=== PATIENT | female | born 1965 | race Caucasian/White ===

== ENCOUNTER 2017-12-21 15:15 | Outpatient (CLI) | payer BC | END 2017-12-21 15:16 | disposition home or self-care (01) | LOC: BICMAMMO 15:15 | PROVIDERS: ATTEND Family Medicine | DX: Z12.31 Encounter for screening mammogram for malignant neoplasm of breast (principal); Z80.3 Family history of malignant neoplasm of breast | CPT/HCPCS: 77063; 77067 ==

== ENCOUNTER 2018-10-06 13:58 | Outpatient (CLI) | payer BC ==
--- NOTE | 2018-10-06 15:17 | MRI ---
MRI LUMBAR SPINE NONCONTRAST: 10/06/2018 HISTORY: Right lower back pain for approximately seven months. COMPARISON: None available. FINDINGS: A subcentimeter increased T2 weighted signal intensity focus is seen at the anterior aspect, mid port ion, right kidney, which is difficult to characterize but statistically likely represents a small jorge al cyst. The conus medullaris is normal in appearance and terminates at the level of the L1 vertebral body. Endplate degenerative changes are present at the L5-S1 level. A few focal areas of increased T1 and T2 weighted signal intensity are seen within the L3 and L4 vertebral bodies, likely related to small hemangiomas or focal areas of fat. A similar finding is seen in the S1 vertebral body. L1-L2: There is no significant disk bulge or disk herniation. The central spinal canal and neural f oramina are patent. L2-L3: There is no disk bulge or disk herniation. The central spinal canal and neural foramina are patent. L3-L4: There is a mild broad-based disk bulge with tiny central disk protrusion and associated annul ar tear, resulting in effacement of the thecal sac. The neural foramina are widely patent. L4-L5: There is a mild broad-based disk osteophyte complex with small central disk protrusion and as sociated annular tear. This results in effacement of the anterior aspect of the thecal sac. The farzana ral foramina are patent. L5-S1: There are endplate degenerative changes. There is loss of intervertebral disk height. There is a broad-based disk osteophyte complex present, which contacts the anterior aspect of the thecal s ac but does not appear to deform the thecal sac, and there is no significant narrowing of the central spinal canal. There is resultant mild bilateral neural foraminal narrowing. Mild facet degenerativ e changes are present at this level. IMPRESSION: 1. Degenerative changes involving the lower lumbar spine, as described above. 2. Subcentimeter increased T2 weighted signal intensity focus, right kidney, which cannot be further characterized but, statistically, likely represents a renal cyst. POS: DESIRAE
== END 2018-10-06 13:59 | disposition home or self-care (01) ==
LOC: MRI 13:58
PROVIDERS: ATTEND Neurological Surgery
DX: M54.5 Low back pain (principal); M47.816 Spondylosis without myelopathy or radiculopathy, lumbar region; R93.421 Abnormal radiologic findings on diagnostic imaging of right kidney
CPT/HCPCS: 72148

== ENCOUNTER 2018-11-25 15:45 | Outpatient (CLI) | payer BC ==
--- NOTE | 2018-11-25 16:28 | MMO ---
Bilateral MAMMO Bilat Screen [facility]. CLINICAL HISTORY: Patient is 53 years old and is seen for screening. The patient has the following family history of breast cancer: maternal grandmother and maternal aunt. The patient has no personal history of cancer. The patient has a history of right Cyst Aspiration in November,, left Ultrasound Guided Core Biopsy in March, - benign and left Cyst Aspiration in 03/2003 - cyst. VIEWS: The views performed were: bilateral craniocaudal with tomosynthesis; bilateral mediolateral oblique with tomosynthesis; and bilateral exaggerated craniocaudal. FILMS COMPARED: The present examination has been compared to prior imaging studies performed at [facility] on 02/22/2001, 02/23/2003, 04/14/2003, 10/16/2003, 04/26/2004, 10/25/2004, 05/02/2005, 05/11/2008, 05/15/2008, 06/27/2008, 04/16/2009, 06/13/2009, 12/19/2009, 04/21/2011, 10/21/2011, 03/22/2012, 07/14/2012, 11/25/2012, 03/23/2013, 03/23/2014, 03/23/2015, 03/03/2016, 12/15/2016 and 12/21/2017, and at [facility] on 04/05/2007. MAMMOGRAM FINDINGS: The breasts are extremely dense, which may lower the sensitivity of mammography. Finding 1: Scattered nodules are seen, some slightly larger and some slightly smaller, compatible with fluctuating cysts. Finding 2: There are calcifications seen in the anterior outer region of the left breast. IMPRESSION: FINDING 2: CALCIFICATIONS IN THE LEFT BREAST REQUIRE ADDITIONAL EVALUATION. RECOMMEND DIAGNOSTIC MAMMOGRAM. THE RESULTS OF THIS EXAM WERE SENT TO THE PATIENT. ACR BI-RADS Category 0 - Incomplete: Need additional imaging evaluation. [facility] will notify the patient of the need for additional imaging services. MAMMOGRAPHY NOTE: 1. A negative mammogram report should not delay a biopsy if a dominant of clinically suspicious mass is present. 2. Approximately 10% to 15% of breast cancers are not detected by mammography. 3. Adenosis and dense breasts may obscure an underlying neoplasm.
== END 2018-11-25 15:46 | disposition home or self-care (01) ==
LOC: BICMAMMO 15:45
PROVIDERS: ATTEND Obstetrics & Gynecology
DX: Z12.31 Encounter for screening mammogram for malignant neoplasm of breast (principal); Z80.3 Family history of malignant neoplasm of breast; Z98.890 Other specified postprocedural states
CPT/HCPCS: 77063; 77067

== ENCOUNTER 2018-11-30 12:34 | Outpatient (CLI) | payer BC ==
--- NOTE | 2018-11-30 13:19 | MMO ---
Left Breast MAMMO Unilat Diag [facility]. CLINICAL HISTORY: Patient is 53 years old and is seen for additional evaluation requested at current screening. The patient has the following family history of breast cancer: maternal grandmother and maternal aunt. The patient has no personal history of cancer. The patient has a history of right Cyst Aspiration in November,, left Ultrasound Guided Core Biopsy in March, - benign and left Cyst Aspiration in 03/2003 - cyst. VIEWS: The views performed were: left craniocaudal spot compression magnification; left mediolateral spot compression magnification; and left mediolateral with tomosynthesis. FILMS COMPARED: The present examination has been compared to prior imaging studies performed at [facility] on 02/22/2001, 02/23/2003, 04/14/2003, 10/16/2003, 04/26/2004, 10/25/2004, 05/02/2005, 05/11/2008, 05/15/2008, 06/27/2008, 04/16/2009, 06/13/2009, 12/19/2009, 04/21/2011, 10/21/2011, 03/22/2012, 07/14/2012, 11/25/2012, 03/23/2013, 03/23/2014, 03/23/2015, 03/03/2016, 12/15/2016, 12/21/2017 and 11/25/2018, and at [facility] on 04/05/2007. MAMMOGRAM FINDINGS: The breast is extremely dense, which may lower the sensitivity of mammography. There are numerous masses throughout the left breast suggesting cysts. The calcifications noted on recent screening examination are noted, curvilinear in configuration, corresponding with calcification of a cyst wall. There are no suspicious masses, suspicious calcifications, or new areas of architectural distortion. IMPRESSION: THERE IS NO MAMMOGRAPHIC EVIDENCE OF MALIGNANCY. A ROUTINE FOLLOW-UP MAMMOGRAM IN 1 YEAR IS RECOMMENDED. THE RESULTS OF THIS EXAM WERE SENT TO THE PATIENT. ACR BI-RADS Category 2 - Benign finding MAMMOGRAPHY NOTE: 1. A negative mammogram report should not delay a biopsy if a dominant of clinically suspicious mass is present. 2. Approximately 10% to 15% of breast cancers are not detected by mammography. 3. Adenosis and dense breasts may obscure an underlying neoplasm.
== END 2018-11-30 12:35 | disposition home or self-care (01) ==
LOC: BICMAMMO 12:34
PROVIDERS: ATTEND Obstetrics & Gynecology
DX: R92.1 Mammographic calcification found on diagnostic imaging of breast (principal); Z80.3 Family history of malignant neoplasm of breast
CPT/HCPCS: G0279

== ENCOUNTER 2020-07-03 15:58 | Outpatient (CLI) | payer BC ==
--- NOTE | 2020-07-04 08:40 | MMO ---
Bilateral MAMMO Bilat Screen [facility]. CLINICAL HISTORY: Patient is 54 years old and is seen for screening. The patient has the following family history of breast cancer: maternal grandmother and maternal aunt. The patient has no personal history of cancer. The patient has a history of right Cyst Aspiration in November,, left Ultrasound Guided Core Biopsy in March, - benign and left Cyst Aspiration in 03/2003 - cyst. VIEWS: The views performed were: bilateral craniocaudal with tomosynthesis and bilateral mediolateral oblique with tomosynthesis. FILMS COMPARED: The present examination has been compared to prior imaging studies performed at [facility] on 12/21/2017, 11/25/2018 and 11/30/2018. This study has been interpreted with the assistance of computer-aided detection. MAMMOGRAM FINDINGS: The breasts are extremely dense, which may lower the sensitivity of mammography. Benign calcifications are noted bilaterally. Bilateral nodularity is consistent with fluctuating cysts. There are no suspicious masses, suspicious calcifications, or new areas of architectural distortion. IMPRESSION: THERE IS NO MAMMOGRAPHIC EVIDENCE OF MALIGNANCY. A ROUTINE FOLLOW-UP MAMMOGRAM IN 1 YEAR IS RECOMMENDED. THE RESULTS OF THIS EXAM WERE SENT TO THE PATIENT. ACR BI-RADS Category 2 - Benign finding MAMMOGRAPHY NOTE: 1. A negative mammogram report should not delay a biopsy if a dominant of clinically suspicious mass is present. 2. Approximately 10% to 15% of breast cancers are not detected by mammography. 3. Adenosis and dense breasts may obscure an underlying neoplasm. Reported by: MAGGIE GIORDANO MD Electonically Signed: [id number]
== END 2020-07-03 15:59 | disposition home or self-care (01) ==
LOC: BICMAMMO 15:58
PROVIDERS: ATTEND Obstetrics & Gynecology
DX: Z12.31 Encounter for screening mammogram for malignant neoplasm of breast (principal); Z80.3 Family history of malignant neoplasm of breast
CPT/HCPCS: 77063; 77067

== ENCOUNTER 2025-06-21 14:23 | Outpatient (CLI) | payer BC | END 2025-06-21 14:24 | disposition home or self-care (01) | LOC: SCSBT 14:23 | PROVIDERS: ATTEND Obstetrics & Gynecology | DX: Z13.820 Encounter for screening for osteoporosis (principal) | CPT/HCPCS: 77080 ==